=== PATIENT | female | born 1970 | race African-American/Black ===

== ENCOUNTER 2016-03-29 05:37 | Day surgery (SDC) | payer BC ==
[~2016-03-29] VITALS: Ht 157.5 cm; Wt 77.0 kg
[~2016-03-29 05:37] MED LIST: AMLODIPINE BESYL5 MG PO; ATORVASTATIN CA10 MG PO; CHANTIX1 MG PO; LEVAQUIN750 MG PO; LISINOPRIL10 MG PO; METFORMIN HCL500 MG PO; METOPROLOL TART25 MG PO; PROVENTIL HFA6.7 GM IH; VITAMIN C1000 MG PO; ZITHROMAX Z-PA250 MG PO; ZITHROMAX250 MG PO
[2016-03-29 05:53] VITALS: BP 112/74
[2016-03-29 06:26] LABS: POINT-OF-CARE METER ID UU14174212
[2016-03-29] MEDS ORDERED: ENDOCET 5-3251 EACH PO (09:34)
[2016-03-29] MEDS ORDERED: IBUPROFEN800 MG PO (09:34)
[2016-03-29 11:05] VITALS: BP 113/73
[2016-03-29 12:05] VITALS: BP 123/76
[2016-03-29 13:10] VITALS: BP 132/83
== END 2016-03-29 13:25 | disposition home or self-care (01) ==
LOC: SDC 05:37
PROVIDERS: Obstetrics & Gynecology
DX: N92.0 Excessive and frequent menstruation with regular cycle (principal); D25.9 Leiomyoma of uterus, unspecified; N94.6 Dysmenorrhea, unspecified; N72 Inflammatory disease of cervix uteri; Z87.891 Personal history of nicotine dependence
CPT/HCPCS: 82948; 88307; J0330; J1100; J1170; J1580; J1885; J2250; J2405; J2710; J3010